=== PATIENT | male | born 1995 | race Caucasian/White ===

== ENCOUNTER 2019-06-16 10:39 | Emergency (ER) | payer OTHER ==
[~2019-06-16] VITALS: Ht 182.9 cm; Wt 94.3 kg
[2019-06-16 10:39] VITALS: BP 151/63
[2019-06-16] MEDS ORDERED: IBUP80TA PO (11:17)
== END 2019-06-16 11:28 | disposition home or self-care (01) ==
LOC: M ED 10:39
DX: S49.92XA Unspecified injury of left shoulder and upper arm, initial encounter (principal); X58.XXXA Exposure to other specified factors, initial encounter; Y92.89 Other specified places as the place of occurrence of the external cause

== ENCOUNTER 2020-04-24 20:57 | Inpatient (IN) | payer OTHER ==
[~2020-04-24 20:57] MED LIST: IBUP80TA PO
[2020-04-24 21:37] LABS: HEMATOCRIT 43.7 % (42.0-52.0); HEMOGLOBIN 14.8 g/dl (13.5-17.5); MEAN CORPUSCULAR HGB CONC 33.9 g/dl (32.0-36.5); MEAN CORPUSCULAR VOLUME 88.6 fl (80.0-96.0); PLATELET COUNT, AUTOMATED 265 10^3/uL (150-450); RED BLOOD COUNT 4.93 10^6/uL (4.30-6.10); WHITE BLOOD COUNT 8.2 10^3/uL (4.0-10.0)
[2020-04-24 22:02] LABS: AMPHETAMINES LEVEL URINE NEGATIVE (NEGATIVE); BARBITURATES URINE NEGATIVE (NEGATIVE); BENZODIAZEPINES URINE NEGATIVE (NEGATIVE); CANNABINOIDS URINE NEGATIVE (NEGATIVE); COCAINE METABOLITE URINE NEGATIVE (NEGATIVE); METHADONE URINE NEGATIVE (NEGATIVE); OPIATES URINE NEGATIVE (NEGATIVE); PHENCYCLIDINE URINE NEGATIVE (NEGATIVE)
[2020-04-24 22:13] LABS: ACETAMINOPHEN LEVEL < 2.0 UG/ML (10.0-30.0); ALBUMIN 4.2 GM/DL (3.2-5.2); ALT/SGPT 42 U/L (12-78); BILIRUBIN,DIRECT 0.1 MG/DL (0.0-0.2); BILIRUBIN,TOTAL 0.4 MG/DL (0.2-1.0); BLOOD UREA NITROGEN 11 MG/DL (7-18); CALCIUM LEVEL 8.4 MG/DL (8.5-10.1); CARBON DIOXIDE LEVEL 29 MEQ/L (21-32); CHLORIDE LEVEL 106 MEQ/L (98-107); CREATININE FOR GFR 0.95 MG/DL (0.70-1.30); ETHYL ALCOHOL (ETHANOL) 0.063 % (0.000-0.010); GLOMERULAR FILTRATION RATE > 60.0 (>60); GLUCOSE, FASTING 91 MG/DL (70-100); SALICYLATE LEVEL < 1.7 MG/DL (5.0-30.0); SODIUM LEVEL 139 MEQ/L (136-145); THYROID STIMULATING HORMONE 0.771 uIU/ML (0.358-3.740)
[2020-04-25 00:21] LABS: RSV AMPLIFICATION NEGATIVE (NEGATIVE)
[2020-04-25] MEDS ORDERED: ACETAMINOPHEN TAB 650MG DOSE (2X325MG) PO PRN (01:15)
[2020-04-25] MEDS ORDERED: MAALOX 30 ML SUSP *UDC PO PRN (01:15)
[2020-04-25] MEDS ORDERED: traZODone 50 MG TAB PO PRN (01:15)
[2020-04-25] MEDS ORDERED: MOM 30ML SUSPENSION UDC PO PRN (01:15)
[2020-04-25] MEDS ORDERED: OLANZapine ORAL DISINTEGRATING TAB 5MG PO PRN (01:15)
[2020-04-25 01:50] VITALS: BP 137/72
[2020-04-25] MEDS ORDERED: SERTRALINE HCL 50 MG TAB PO SCH (09:00)
[2020-04-25] MEDS: NICOTINE 21MG/24HR 1 EA TRANSDERMAL TD SCH (09:00)
--- NOTE | 2020-04-25 16:52 | MHHPEPDOC ---
General Date Of Admission: Apr 24, 2020 Legal Status: 9.39 Chief Complaint Suicidal ideation. History of Present Illness HISTORY OF THE PRESENT ILLNESS: Patient is a 24 -year-old , male, who. as per ED report: "Reason for Referral Pt was brought in by MPs after pt mother called for a wellness check on pt because he was making vauge SI statements to his . Chief Complaint Pt is a 24 YO AD male who lives at home with his . 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 Pt stated that he has struggled with SI for 10+ years, but he has no plan. Pt attempted SI when he was a teenager. Pt reported that he was talking to his about the thoughts he was having and she called pt mother and told her and the mother called the MPs for a wellness check. When PSA spoke with pt she said that she believes the pt is unsafe. Pt stated "I've been very nervous of what I'm going to come home to sometimes." Pt also stated that he has been very distant and secluded so she does not think he is safe for discharge. Pt also stated that they have been arguing for the past week or so, and he has said multiple times that he wanted to hurt or kill himself. During M[facility] pt denied HI or AH/VH. Pt also stated that he does chewing tobacco daily and drinks EOTH occasionally. Pt was previously in [facility] a few years ago but was discharged. Pt seems to be minimizing symptoms due to not thinking he needs to be admitted". Psychiatric Review of Systems Depression (2 or more weeks): depressed mood, anhedonia, insomnia/hypersomnia, feelings of worthlesness, decreased energy, difficulty concentrating, psychomotor changes (slowed down), suicidal thoughts (since his teens, on and off---worse during the winter---passive SI) Elisabeth (4 or more days of): irritable/elevated mood (sometimes, for several days in a row--he isolates himself), grandiosity (he has felt grandiose at times, he says he holds himself to a higher standard when it comes to intelligence), decreased need for sleep, still with energy (he used to go for 2 days w/o sleep and with energy when he was younger), flight of ideas (racing thoughts, spe cially when he is not doing anything), goal-directed activities (he wants to do a lot of things, he gets distracted and doesn't accomplish them), engages in risky behavior (as a teenager, not now) Psychosis: denies PTSD: denies Anxiety: panic attacks (rarely) Anxiety/ 6 months or more of: restlessness, keyed up, easily fatigued, difficulty concentrating, irritability, muscle tension, sleep disturbance Past Psychiatric History Previous Psychiatric Diagnosis: Depression Previous Psychiatric Admissions: Denies Suicide Attempts: When he was a teen but he was not admitted to a hospital. He tried to hang himselr and he started going to therapy Psychiatric Follow-up: Denies Psychiatric medications: Denies. Past Medical History Medical Problems Shoulder repair Surgeries: Yes (shoulder repair, the pain makes sleep difficult) Family Medical/Psychiatric HX Medical Problems Diabetes,cancer Psychiatric Disorders: No Addiction: Yes (His father wa a substance abuser, he killed himself around 23 years ago) Suicide Attemps/Completions: Yes (His father killed himself 23 years ago-- he shot himself) Addiction History nicotine (he chews tobacco), alcohol (rarely, once/month) Social History Childhood: He sys "it was kind of normal, nothing special". He didn't get along with his mother when he became a teenager. Mom re 4 years after his father killed himself. he grew up with mom and step dad. He has one half brother 9 mom and step father). They get along. Abuse/Trauma: Denies Current Living Situation: Lives at ,with his Education: Finished HS, he did a couple of years in College and abandoned it for the Employment: Ad soldier Social Support: his and his friends Legal: Denies Marital: , no children.. Mental Status Examination General Appearance: well groomed, appears stated age, hospital scubs/clothing Build: average Demeanor: average Eye Contact: average Activity: average Behavior: cooperative Speech: clear, spontaneous, reg/rate,rhythm,volume Mood: depressed Affect: constricted Thought Process: logical/linear Thought Content (Delusions): none reported Thought Content (Other): none reported Thought Content (Aggressive): none reported Perception (Hallucinations): none reported Perception (Other): none reported Cognition (Impairment of): none reported Cognition(Intelligence Est.): average Oriented: Awake, Alert, Oriented times three Insight: fair Judgment: Fair Psychosis: Denies Diagnoses 1. major Depressive Disorder, recurrent, moderate A-FIB/CHADSVASC A-FIB History Current/History of A-Fib/PAF?: No Current PO Anticoag Therapy: No Age/Risk Factor Scoring CHADSVASC: CHADSVASC Response (Comments) Value Age Risk Factor Age < 65 years old 0 Gender Risk Factor Male 0 Hx of CHF No 0 Hx of HTN No 0 Hx of Stroke/TIA/or VTE No 0 Hx of Diabetes No 0 Hx of Vascular Disease No 0 Total 0 Treatment Treatment ordered: NONE Reason Anticoagulant not given: Not indicated/[id number] Assessment The patient has been chronically depressed and he is at high risk for suicide since his father killed himself 23 years ago. Will start him on Zoloft 50 mgs PO QHS Initial Treatment Plan 1. Patient was admitted on a [9.39] status. 2. Complete history was obtained. 3. With patients permission, family will be contacted and database will be expanded. 4. Patients medication regimen will be reviewed and changed accordingly. 5. Patient will be provided with protected environment. 6. Patient will be treated with individual, group, and milieu therapies. 7. Patient will receive supportive psych-education. 8. Discharge planning will commence immediately. 9. Outpatient follow-up treatment will be strongly recommended. 10. The initial treatment plan will focus initially on: * Depression. * Risk for suicide. ESTIMATED LENGTH OF STAY: 5-7DAYS. TIME SPENT COUNSELING AND COORDINATING INITIAL CARE: 45 minutes. Vital Signs Vital Signs Date Time Temp Pulse Resp B/P (MAP) Pulse Ox O2 Delivery O2 Flow Rate FiO2 04/25/20 01:50 98.1 84 16 137/72 (93) 98 Room Air Laboratory Data 24H Labs Laboratory Tests 2 04/24/20 21:23: Nucleated Red Blood Cells % (auto) 0.0, Anion Gap 4L, Glomerular Filtration Rate > 60.0, Calcium Level 8.4L, Total Bilirubin 0.4, Direct Bilirubin 0.1, Aspartate Amino Transf (AST/SGOT) 14, Alanine Aminotransferase (ALT/SGPT) 42, Alkaline Phosphatase 108, Total Protein 8.0, Albumin 4.2, Albumin/Globulin Ratio 1.1, Thyroid Stimulating Hormone (TSH) 0.771, Salicylates Level < 1.7L, Urine Opiates Screen NEGATIVE, Urine Methadone Screen NEGATIVE, Acetaminophen Level < 2.0L, Urine Barbiturates Screen NEGATIVE, Urine Phencyclidine Screen NEGATIVE, Urine Amphetamines Screen NEGATIVE, Urine Benzodiazepines Screen NEGATIVE, Urine Cocaine Metabolite Screen NEGATIVE, Urine Cannabinoids Screen NEGATIVE, Ethyl Alcohol Level 0.063H 04/24/20 22:51: Coronavirus (COVID-19)(PCR) NEGATIVE, Influenza Type A (RT-PCR) NEGATIVE, Influenza Type B (RT-PCR) NEGATIVE, Respiratory Syncytial Virus (PCR) NEGATIVE CBC/BMP Laboratory Tests 04/24/20 21:23 Medications No Active Prescriptions or Reported Meds Allergies Coded Allergies: No Known Allergies (Unverified , 12/05/17) SHAI SANCHEZ MD Apr 25, 2020 14:32
[2020-04-25 18:00] VITALS: BP 120/76
--- NOTE | 2020-04-25 19:12 | HPEPDOC ---
[facility] Medical History & Physical Date of Admission Apr 25, 2020 Date of Service: Apr 25, 2020 History and Physical CHIEF COMPLAINT: Suicidal ideation HISTORY OF PRESENT ILLNESS: Mr. Ye is a 24 year old male her with suicidal ideation. Patient was making SI comments to , and patient's mother had called for wellness check on patient. He was seen in the inpatient mental health unit this evening. Currently he is feeling physically well. Denies any fever/chills, chest pain, dyspnea, abdominal pain, changes in bowel movements, or dysuria. No complaints at this time. PAST MEDICAL HISTORY: 1. Denies any past medical history, takes no medications at home PAST SURGICAL HISTORY: 1. Left shoulder surgery SOCIAL HISTORY: Tobacco use: Uses dip daily ETOH: Rare Illicit drug use: Denies FAMILY HISTORY: Father: Denies any known past medical history in father Mother: Denies any known past medical history in mother ALLERGIES: Please see below. REVIEW OF SYSTEMS: CONSTITUTIONAL: Denies any fever or chills. Denies lightheadedness or dizziness. ENT: Denies sore throat. RESPIRATORY: Denies shortness of breath. Denies cough. CARDIOVASCULAR: Denies chest pain. GASTROINTESTINAL: Denies abdominal pain. Denies changes in bowel movements GENITOURINARY: Denies dysuria. CUTANEOUS: Denies rashes. MUSCULOSKELETAL: Denies muscle weakness. NEUROLOGICAL: Denies neuropathy. Denies paresthesias. HEMATOLOGICAL: Denies bruises HOME MEDICATIONS: Please see below. PHYSICAL EXAMINATION: VITAL SIGNS: Temperature 98.1, pulse 84, respiratory rate 16, blood pressure 137/72, pulse oximetry 98% on room air. GENERAL: Comfortable, in no apparent distress. HEENT: Head normocephalic/atraumatic, EOMI, sclera clear. NECK: Supple RESPIRATORY: Lungs clear to auscultation bilaterally, no rales, wheeze or rhonchi. CARDIOVASCULAR: Regular rate and rhythm. ABDOMEN: Soft, nontender, no guarding or rebound tenderness. Normal bowel so unds. MUSCLE SKELETAL: Muscle strength 5/5 in all extremities. NEUROLOGICAL: CN 312 grossly intact, no focal deficits noted. PSYCHOLOGICAL: Normal mood and affect LABORATORY DATA: See below. ASSESSMENT AND PLAN: 1. Suicide ideation Being managed in the inpatient mental health unit 2. General wellness Patient should follow up with PCP for regular check ups Thank you for consulting us. We will sign off at this time. If there are any further questions or concerns, please do not hesitate to reconsult us. Vital Signs Vital Signs Date Time Temp Pulse Resp B/P (MAP) Pulse Ox O2 Delivery O2 Flow Rate FiO2 04/25/20 18:00 98.0 72 15 120/76 (91) 99 04/25/20 01:50 Room Air Laboratory Data Labs 24H Laboratory Tests 2 04/24/20 21:23: Nucleated Red Blood Cells % (auto) 0.0, Anion Gap 4L, Glomerular Filtration Rate > 60.0, Calcium Level 8.4L, Total Bilirubin 0.4, Direct Bilirubin 0.1, Aspartate Amino Transf (AST/SGOT) 14, Alanine Aminotransferase (ALT/SGPT) 42, Alkaline Phosphatase 108, Total Protein 8.0, Albumin 4.2, Albumin/Globulin Ratio 1.1, Thyroid Stimulating Hormone (TSH) 0.771, Salicylates Level < 1.7L, Urine Opiates Screen NEGATIVE, Urine Methadone Screen NEGATIVE, Acetaminophen Level < 2.0L, Urine Barbiturates Screen NEGATIVE, Urine Phencyclidine Screen NEGATIVE, Urine Amphetamines Screen NEGATIVE, Urine Benzodiazepines Screen NEGATIVE, Urine Cocaine Metabolite Screen NEGATIVE, Urine Cannabinoids Screen NEGATIVE, Ethyl Alcohol Level 0.063H 04/24/20 22:51: Coronavirus (COVID-19)(PCR) NEGATIVE, Influenza Type A (RT-PCR) NEGATIVE, Influenza Type B (RT-PCR) NEGATIVE, Respiratory Syncytial Virus (PCR) NEGATIVE CBC/BMP Laboratory Tests 04/24/20 21:23 Home Medications No Active Prescriptions or Reported Meds Allergies Coded Allergies: No Known Allergies (Unverified , 12/05/17) A-FIB/CHADSVASC A-FIB History Current/History of A-Fib/PAF?: No Age/Risk Factor Scoring CHADSVASC: CHADSVASC Response (Comments) Value Age Risk Factor Age < 65 years old 0 Gender Risk Factor Male 0 Hx of CHF No 0 Hx of HTN No 0 Hx of Stroke/TIA/or VTE No 0 Hx of Diabetes No 0 Hx of Vascular Disease No 0 Total 0 LOS SWAIN DO Apr 25, 2020 19:11
[2020-04-26] MEDS: NICOTINE 21MG/24HR 1 EA TRANSDERMAL TD SCH (09:00)
[2020-04-26 17:36] VITALS: BP 132/98
--- NOTE | 2020-04-26 19:10 | MHIPNPDOC ---
[facility] Progress Note Progress Note DATE OF SERVICE: 04/26/20 HISTORY: Patient is a 24 -year-old , male, who. as per ED report: " Reason for Referral Pt was brought in by MPs after pt mother called for a wellness check on pt because he was making vauge SI statements to his . Chief Complaint Pt is a 24 YO AD male who lives at home with his . 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 Pt stated that he has struggled with SI for 10+ years, but he has no plan. Pt attempted SI when he was a teenager. Pt reported that he was talking to his about the thoughts he was having and she called pt arash ramirez and told her and the mother called the MPs for a wellness check. When PSA spoke with pt she said that she believes the pt is unsafe. Pt stated "I've been very nervous of what I'm going to come home to sometimes." Pt also stated that he has been very distant and secluded so she does not think he is safe for discharge. Pt also stated that they have been arguing for the past week or so, and he has said multiple times that he wanted to hurt or kill himself. During MHE pt denied HI or AH/VH. Pt also stated that he does chewing tobacco daily and drinks EOTH occasionally. Pt was previously in [facility] a few years ago but was discharged. Pt seems to be minimizing symptoms due to not thinking he needs to be admitted". VITAL SIGNS: See below. NEW TEST RESULTS: . CURRENT MEDICATIONS: See below. MENTAL STATUS EXAMINATION: General Appearance: well groomed, appears stated age, hospital scrubs/clothing Build: average Demeanor: Pleasant Eye Contact: good Activity: average Behavior: cooperative, pleasant Speech: clear, spontaneous, reg/rate,rhythm,volume Mood: "pretty OK" Affect: more reactive, smiles at times Thought Process: logical/linear Thought Content (Delusions): none reported Thought Content (Other): none reported Thought Content (Aggressive): none reported Perception (Hallucinations): none reported Perception (Other): none reported Cognition (Impairment of): none reported Cognition(Intelligence Est.): average Oriented: Awake, Alert, Oriented times three Insight: fair Judgment: Fair Psychosis: Denies Diagnoses 1. major Depressive Disorder, recurrent, moderate ASSESSMENT The patient slept well, is eating well, has not had a bad reaction to his medications. His mood and affect are a little bit brighter. He says he has not had suicidal ideation but he tends to minimize his feelings. MANAGEMENT PLAN: Will continue with current treatment plan TIME SPENT: 15 minutes. Vital Signs Vital Signs Date Time Temp Pulse Resp B/P (MAP) Pulse Ox O2 Delivery O2 Flow Rate FiO2 04/26/20 17:36 98.0 99 15 132/98 (109) 99 Room Air Current Medications Current Medications Medications (Trade) Dose Ordered Sig/James Route PRN Reason Start Time Stop Time Status Last Admin Dose Admin Acetaminophen (Tylenol Tab) 650 mg Q6HP PRN PO HEADACHE or DISCOMFORT 04/25/20 01:15 Al Hydrox/Mg Hydrox/Simethicone (Mylanta) 30 ml Q4HP PRN PO HEARTBURN/INDIGESTION 04/25/20 01:15 Home Med (Med Rec Complete!) ASDIRECTED XX 04/24/20 23:30 04/24/20 23:24 DC Magnesium Hydroxide (Milk Of Magnesia) 30 ml DAILYPRN PRN PO CONSTIPATION 04/25/20 01:15 Nicotine (Nicoderm Cq 21mg) 1 patch DAILY TD 04/25/20 09:00 Olanzapine (ZyPREXA ZYDIS) 5 mg Q4HP PRN PO AGITATION 04/25/20 01:15 Sertraline HCl (Zoloft) 50 mg DAILY PO 04/25/20 09:00 04/25/20 16:48 DC 04/25/20 09:56 Sertraline HCl (Zoloft) 50 mg QHS PO 04/26/20 21:00 Trazodone HCl (Desyrel) 50 mg QHSP PRN PO INSOMNIA 04/25/20 01:15 Allergies Coded Allergies: No Known Allergies (Unverified , 12/05/17) SHAI SANCHEZ MD Apr 26, 2020 19:04
[2020-04-26] MEDS: SERTRALINE HCL 50 MG TAB PO SCH (21:41)
[2020-04-27 06:12] VITALS: BP 129/69
[2020-04-27] MEDS: NICOTINE 21MG/24HR 1 EA TRANSDERMAL TD SCH (09:00)
[2020-04-27 17:52] VITALS: BP 140/80
[2020-04-27] MEDS: SERTRALINE HCL 50 MG TAB PO SCH (20:59)
[2020-04-28 06:08] VITALS: BP 150/66
[2020-04-28] MEDS: NICOTINE 21MG/24HR 1 EA TRANSDERMAL TD SCH (09:00)
[2020-04-28 15:40] VITALS: BP 138/62
[2020-04-28 15:42] VITALS: BP 138/62
--- NOTE | 2020-04-28 15:43 | MHIPNPDOC ---
[facility] Progress Note Progress Note DATE OF SERVICE: 04/27/2020 CHIEF COMPLAINT: "I am better and I want to be discharged. " HISTORY: This is a 24-year-old male who was brought in by the police after patient's motor called for wellness check on patient. The patient was invited to his interview and he accepted the meeting. Chart was reviewed. Patient indicates that he is the about to end his contract with the and has been anxious about that. Patient expresses the desire to stay in the area and pursues a career. The patient indicates that this is the first time that he has been admitted to a psychiatric unit. He states that he spoke to his about the ideations. The then called his mother. Patient denies auditory and visual hallucination. He denies suicidal and homicidal ideations. Patient reports that he has been on no medications. OBJECTIVE: VITAL SIGNS: See below. NEW TEST RESULTS: See below. CURRENT MEDICATIONS: See below. MENTAL STATUS EXAMINATION: Patient is a 24-year old male, who looks his stated age. He is casually dressed with hospital attire with good hygiene. Speech: Is clear, not pressured with normal tone and volume. Patient makes good eye contact. Motor activity: No Psychomotor agitation. No psychomotor retardation. Thought processes : Linear, logical and circumstantial. Thought content: Appropriate . Perceptions: Denies auditory and visual hallucinations. Denied persecutory delusions. Judgment: Is sound. Insight: Fair. Orientation: Oriented to time, place, person and situation. Immediate recall, Recent and remote memory: are grossly intact. Attention span is good and concentration: is normal. Fund of knowledge: Average by educational attainment. Mood: Is said to be "okay.". Affect: Appropriate and is mood congruent. Assessment and Plan: Assess 24-year-old Male with Long Signs and Symptoms of depressive disorder, consistent with dysthymia in partial remission. DIAGNOSES: 1. 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 2. Personality disorder, NOS. 3. Nicotine abuse. TREATMENT PLAN: Continue the following medications: Sertraline hydrochloride 50 mg by mouth daily. Trazodone hydrochloride 100 mg by mouth or daily. Olanzapine 5 mg by mouth every 4 hours as needed. TIME SPENT: 30 minutes. Vital Signs Vital Signs Date Time Temp Pulse Resp B/P (MAP) Pulse Ox O2 Delivery O2 Flow Rate FiO2 04/28/20 06:08 97.9 82 16 150/66 (94) 95 Room Air Current Medications Current Medications Medications (Trade) Dose Ordered Sig/James Route PRN Reason Start Time Stop Time Status Last Admin Dose Admin Acetaminophen (Tylenol Tab) 650 mg Q6HP PRN PO HEADACHE or DISCOMFORT 04/25/20 01:15 Al Hydrox/Mg Hydrox/Simethicone (Mylanta) 30 ml Q4HP PRN PO HEARTBURN/INDIGESTION 04/25/20 01:15 Home Med (Med Rec Complete!) ASDIRECTED XX 04/24/20 23:30 04/24/20 23:24 DC Magnesium Hydroxide (Milk Of Magnesia) 30 ml DAILYPRN PRN PO CONSTIPATION 04/25/20 01:15 Nicotine (Nicoderm Cq 21mg) 1 patch DAILY TD 04/25/20 09:00 Olanzapine (ZyPREXA ZYDIS) 5 mg Q4HP PRN PO AGITATION 04/25/20 01:15 Sertraline HCl (Zoloft) 50 mg DAILY PO 04/25/20 09:00 04/25/20 16:48 DC 04/25/20 09:56 Sertraline HCl (Zoloft) 50 mg QHS PO 04/26/20 21:00 04/27/20 20:59 Trazodone HCl (Desyrel) 50 mg QHSP PRN PO INSOMNIA 04/25/20 01:15 Allergies Coded Allergies: No Known Allergies (Unverified , 12/05/17) LEONIE PACHECO MD Apr 28, 2020 15:43
[2020-04-28] MEDS: SERTRALINE HCL 50 MG TAB PO SCH (21:46)
[2020-04-29 06:35] VITALS: BP 131/60
[2020-04-29] MEDS: NICOTINE 21MG/24HR 1 EA TRANSDERMAL TD SCH (09:00)
--- NOTE | 2020-04-29 11:51 | MHDSPDOC ---
[facility] Discharge Summary Discharge Summary DATE OF ADMISSION: Apr 24, 2020 at 20:58 DATE OF DISCHARGE: 05/01/2020 DISCHARGE DIAGNOSES: 1. Major depressive disorder without psychosis. 2. Posttraumatic stress disorder in complete remission. 3. Alcohol use disorder induced mood disorder, NOS. REASON FOR ADMISSION: The patient reported persistent history of depressed mood, feeling sad and empty. Dysthymia This Time, patient felt down in the drain and was drinking alcohol, felt very anxious and reported to his that he felt suicidal. The called the police who took patient to Hospital. CONSULTANTS INVOLVED: Drs. Drew and Niki TREATMENT AND PROGRESS ON THE UNIT : 1. Patient was treated with Zoloft 50 mg by mouth daily. 2. Trazodone 50 mg by mouth daily at bedtime. While patient was in treatment, he responded positively and has been compliant with his medications. There has not been any report of untoward reaction. effect HOSPITAL COURSE: DISCHARGE ASSESSMENT: MENTAL STATUS EXAMINATION ON DISCHARGE: Thought processes : Linear, logical and circumstantial. Thought content: Appropriate . Perceptions: Denies auditory and visual hallucinations. Denied persecutory delusions. Judgment: Is sound. Insight: Fair. Orientation: Oriented to time, place, person and situation. Immediate recall, Recent and remote memory: are grossly intact. Attention span is good and concentration: is normal. Fund of knowledge: Average by educational attainment. Mood: Is said to be "okay.". Affect: Appropriate and is mood congruent. Assessment and Plan: Assess 24-year-old Male with Long Signs and Symptoms of depressive disorder, consistent with dysthymia in partial remission. MEDICATIONS ON DISCHARGE: PLAN/FOLLOWUP ARRANGEMENTS: The amount of time spent in the coordination of care for this patient was approximately minutes. Vital Signs/I&Os Vital Signs Date Time Temp Pulse Resp B/P (MAP) Pulse Ox O2 Delivery O2 Flow Rate FiO2 04/29/20 06:35 98.2 77 18 131/60 (83) 96 Room Air Medications No Active Prescriptions or Reported Meds Allergies Coded Allergies: No Known Allergies (Unverified , 12/05/17) LEONIE DREW MD Apr 29, 2020 11:51
[2020-04-29 18:38] VITALS: BP 144/70
[2020-04-29] MEDS: SERTRALINE HCL 50 MG TAB PO SCH (20:23)
[2020-04-30 06:00] VITALS: BP 143/67
[2020-04-30] MEDS: NICOTINE 21MG/24HR 1 EA TRANSDERMAL TD SCH (08:45)
--- NOTE | 2020-04-30 17:23 | MHIPNPDOC ---
[facility] Progress Note Progress Note DATE OF SERVICE: 04/30/20 HISTORY: VITAL SIGNS: See below. NEW TEST RESULTS: CURRENT MEDICATIONS: See below. MENTAL STATUS EXAMINATION: Patient is a 24-year old male, who looks stated age, Speech: Is clear not pressured with normal tone, and volume,. Thought processes is linear, logical and goal oriented Thought content: denies auditory and visual hallucinations. Denies persecutory delusions. Abstract thinking is fairly performed; "People who lives in glass houses should not throw stones." "Do not Criticize" Judgment: Fair Insight: Fair Orientation: Immediate recall, Recent and remote memory: Are grossly intact Attention span is good; and concentration is normal. Language: Fund of knowledge:Average by educational attainment Mood: Euthymic and calm. Affect: Appropriate and mood congruent. ASSESSMENT DIAGNOSES: 1. 2. . 3. . : MANAGEMENT PLAN: . TIME SPENT: minutes. Vital Signs Vital Signs Date Time Temp Pulse Resp B/P (MAP) Pulse Ox O2 Delivery O2 Flow Rate FiO2 04/30/20 06:00 97.4 68 16 143/67 (92) 04/29/20 06:35 96 Room Air Current Medications Current Medications Medications (Trade) Dose Ordered Sig/James Route PRN Reason Start Time Stop Time Status Last Admin Dose Admin Acetaminophen (Tylenol Tab) 650 mg Q6HP PRN PO HEADACHE or DISCOMFORT 04/25/20 01:15 Al Hydrox/Mg Hydrox/Simethicone (Mylanta) 30 ml Q4HP PRN PO HEARTBURN/INDIGESTION 04/25/20 01:15 Home Med (Med Rec Complete!) ASDIRECTED XX 04/24/20 23:30 04/24/20 23:24 DC Magnesium Hydroxide (Milk Of Magnesia) 30 ml DAILYPRN PRN PO CONSTIPATION 04/25/20 01:15 Nicotine (Nicoderm Cq 21mg) 1 patch DAILY TD 04/25/20 09:00 Olanzapine (ZyPREXA ZYDIS) 5 mg Q4HP PRN PO AGITATION 04/25/20 01:15 Sertraline HCl (Zoloft) 50 mg DAILY PO 04/25/20 09:00 04/25/20 16:48 DC 04/25/20 09:56 Sertraline HCl (Zoloft) 50 mg QHS PO 04/26/20 21:00 04/29/20 20:23 Trazodone HCl (Desyrel) 50 mg QHSP PRN PO INSOMNIA 04/25/20 01:15 Allergies Coded Allergies: No Known Allergies (Unverified , 12/05/17) LEONIE PACHECO MD Apr 30, 2020 17:22
[2020-04-30 18:15] VITALS: BP 145/77
[2020-04-30] MEDS: SERTRALINE HCL 50 MG TAB PO SCH (21:03)
[2020-05-01 06:49] VITALS: BP 122/58
[2020-05-01] MEDS: NICOTINE 21MG/24HR 1 EA TRANSDERMAL TD SCH (09:00)
[2020-05-01] MEDS ORDERED: SERT50TA29 PO (12:37)
[2020-05-01] MEDS ORDERED: TRAZ-252 PO (12:37)
== END 2020-05-01 12:45 | disposition home or self-care (01) | DRG 885 ==
LOC: M ED 20:57 → M ED INP 20:58 → M PSY 04-25 01:47
PROVIDERS: ADMIT Psychiatry & Neurology Psychiatry; ATTEND Pediatrics
DX: F33.1 Major depressive disorder, recurrent, moderate (principal); R45.851 Suicidal ideations; F10.14 Alcohol abuse with alcohol-induced mood disorder; Z81.8 Family history of other mental and behavioral disorders; F17.220 Nicotine dependence, chewing tobacco, uncomplicated